=== PATIENT | female | born 1965 ===

== ENCOUNTER → 2017-10-17 | Outpatient (CLI) | payer BC, OTHER ==
[~2017-10-17] MED LIST: BIRTH CONTROL PILLS; ESTR2 PO; FLUO10 PO; HYDR1TAB94 PO; LISI5; METO25ER PO; METO50ER PO; OMEP20ER PO; ONDA8ODT MM; OXYACE5T PO; RANI150 PO; SUMA25 PO; ZOLP10 PO
== END ==
LOC: LAB SHORT 11:24 → PLD 11:24
DX: D22.5 Melanocytic nevi of trunk (principal)
CPT/HCPCS: 88305

== ENCOUNTER 2018-01-02 12:09 | Day surgery (SDC) | payer BC, OTHER ==
[~2018-01-02] VITALS: Ht 172.7 cm; Wt 102.1 kg
[~2018-01-02 12:09] MED LIST changes: -HYDR1TAB94 PO; -LISI5
[2018-01-02] MEDS ORDERED: LISI5 (12:46)
== END 2018-01-02 14:25 | disposition home or self-care (01) ==
LOC: ORSCSDS 12:09
PROVIDERS: Surgery
PROC: 0DBH8ZX Excision of Cecum, Via Natural or Artificial Opening Endoscopic, Diagnostic (ICD-10-PCS; principal; 2018-01-02 13:30)
DX: Z12.11 Encounter for screening for malignant neoplasm of colon (principal); Z80.0 Family history of malignant neoplasm of digestive organs; D12.0 Benign neoplasm of cecum; I10 Essential (primary) hypertension; I48.91 Unspecified atrial fibrillation; K21.9 Gastro-esophageal reflux disease without esophagitis; F32.9 Major depressive disorder, single episode, unspecified; Z79.899 Other long term (current) drug therapy
CPT/HCPCS: 88305; J2405; J7120

== ENCOUNTER 2018-03-01 10:02 | Emergency (ER) | payer BC, OTHER ==
[~2018-03-01] VITALS: Ht 175.3 cm; Wt 101.6 kg
[~2018-03-01 10:02] MED LIST changes: +LISI5
[2018-03-01] MEDS ORDERED: HYDR1TAB94 PO (10:59)
== END 2018-03-01 11:02 | disposition home or self-care (01) ==
LOC: ER 10:02
DX: S32.049D Unspecified fracture of fourth lumbar vertebra, subsequent encounter for fracture with routine healing (principal); Z88.5 Allergy status to narcotic agent; Z79.899 Other long term (current) drug therapy; W11.XXXD Fall on and from ladder, subsequent encounter
CPT/HCPCS: 72100; 72170; 99283-25

== ENCOUNTER → 2020-03-29 | Outpatient (CLI) | payer BC, OTHER ==
[~2020-03-29] MED LIST changes: +HYDR1TAB94 PO
== END | disposition home or self-care (01) ==
LOC: LAB SHORT 07:32 → PLD 07:32
DX: D18.01 Hemangioma of skin and subcutaneous tissue (principal)
CPT/HCPCS: 88305

== ENCOUNTER 2024-03-18 07:15 | Day surgery (SDC) | payer BC, OTHER ==
[~2024-03-18] VITALS: Ht 175.3 cm; Wt 82.0 kg
[2024-03-18] VITALS (15 sets, daily range): BP systolic 98–134; BP diastolic 70–96
[~2024-03-18 07:15] MED LIST changes: +CYCL10 PO; +DESVENLAFAXINE100 M3 PO; +DESVENLAFAXINE50 M3 PO; +HYDHCL25 PO; -LISI5; +LISI5 PO; +LORA10ER PO; +Lactated Ringer's 1,000 ML IV SCH; +MONT10T PO; +PREG150 PO; +SPIRONOLACTONE50 MG PO; +ZOLPIDEM TARTRA10 MG PO
[2024-03-18] MEDS ORDERED: propofoL 40 ML IV ONE (07:53)
--- NOTE | 2024-03-18 08:04 | NUR ---
Ambulatory in Day SurgeryPre-Op teaching done. Pt verbalizes understanding. Patient confirms NPO status and agrees with scheduled surgery. History, Chart, Medications and Allergies reviewed before start of procedure.Patient States Post-Procedure ride home has been arranged.
--- NOTE | 2024-03-18 08:38 | NUR ---
03/18/24 0838 Brett Galvan HISTORY, CHART, MEDICATIONS AND ALLERGIES REVIEWED BEFORE START OF PROCEDURE. PATIENT CONFIRMS NPO STATUS AND AGREES WITH SCHEDULED PROCEDURE. 3-LEAD EKG REVIEWED WITH PHYSICIAN PRIOR TO START OF PROCEDURE. MONITOR INTACT WITH CONTINUOUS PULSE OXIMETRY,CAPNOGRAPHY, 3-LEAD EKG, INTERMITTENT BP. SUPPLEMENTAL O2 TO BE TITRATED THROUGHOUT PROCEDURE TO MAINTAIN O2 SATURATION ABOVE 90%. PATIENT DETERMINED TO BE ASA APPROPRIATE FOR PROPOFOL SEDATION PRIOR TO START OF PROCEDURE BY DR. KEY.
--- NOTE | 2024-03-18 09:22 | NUR ---
Discharge instructions reviewed with patient. Patient verbalizes understanding. Copy given to patient to take home. Patient States Post-Procedure ride home has been arranged. Discharged via wheelchair to private car for ride home.
== END 2024-03-18 09:20 | disposition home or self-care (01) ==
LOC: ORSCMMR 07:15 → ORD 08:30 → ORSCMMR 09:20
PROVIDERS: Internal Medicine Gastroenterology
PROC: 0DBM8ZX Excision of Descending Colon, Via Natural or Artificial Opening Endoscopic, Diagnostic (ICD-10-PCS; principal; 2024-03-18 08:30)
DX: Z12.11 Encounter for screening for malignant neoplasm of colon (principal); D12.4 Benign neoplasm of descending colon; K57.30 Diverticulosis of large intestine without perforation or abscess without bleeding; Z80.0 Family history of malignant neoplasm of digestive organs; I48.0 Paroxysmal atrial fibrillation; K21.9 Gastro-esophageal reflux disease without esophagitis; Z79.899 Other long term (current) drug therapy
CPT/HCPCS: 88305; J2704; J7120